=== PATIENT | male | born 1995 | race Caucasian/White ===

== ENCOUNTER 2023-09-04 10:23 | Emergency (ER) | payer OTHER ==
[2023-09-04 12:50] LABS: BASOPHILS PERCENT AUTO 0.3 % (0.1-1.3); EOSINOPHILS ABSOLUTE AUTO 0.06 K/uL (0.00-0.40); EOSINOPHILS PERCENT AUTO 0.9 % (0.0-5.4); HEMATOCRIT 43.5 % (38.4-49.7); HEMOGLOBIN 15.1 g/dL (12.9-16.9); IMMATURE GRAN PERCENT AUTO 0.3 % (0.0-0.7); LYMPHOCYTES ABSOLUTE AUTO 1.71 K/uL (0.8-3.3); LYMPHOCYTES PERCENT AUTO 25.4 % (11.4-47.7); MEAN CORPUSCULAR HEMOGLOBIN 31.4 pg (31.6-35.5); MEAN CORPUSCULAR HGB CONC 34.7 g/dL (31.6-35.5); MEAN CORPUSCULAR VOLUME 90.4 fL (81.4-99.0); MONOCYTES ABSOLUTE AUTO 0.72 K/uL (0.20-0.90); MONOCYTES PERCENT AUTO 10.7 % (3.3-12.6); NEUTROPHILS ABSOLUTE AUTO 4.19 K/uL (1.0-7.6); NEUTROPHILS PERCENT AUTO 62.4 % (40.0-78.1); PLATELET COUNT,PLT 239 K/uL (130-375); RED BLOOD CELL COUNT 4.81 M/uL (4.14-5.76); WHITE BLOOD CELL COUNT,WBC 6.7 K/uL (3.2-11.0)
[2023-09-04] MEDS: Sodium Chloride 0.9% 10 ML Syringe FLUSH PRN (12:53)
[2023-09-04] MEDS: Sodium Chloride 0.9% 1,000 ML IV SCH (12:54)
[2023-09-04 12:56] LABS: BASOPHILS ABSOLUTE AUTO 0.02 K/uL (0.00-0.10); IMMATURE GRAN ABSOLUTE AUTO 0.02 K/uL (0.00-0.23)
[2023-09-04 13:05] LABS: CALCIUM 9.8 mg/dL (8.5-10.1); CREATININE 0.9 mg/dL (0.8-1.3); EST CRCL DRUG DOSING (CG) 126.56 mL/min; POTASSIUM,K 4.2 mmol/L (3.6-5.2)
[2023-09-04 13:06] LABS: ANION GAP 12.2 mmol/L (5.0-14.0)
[2023-09-04] MEDS: Sodium Chloride 0.9% 100 ML IV ONE (13:07)
[2023-09-04] MEDS: Iopamidol 612 MG/ML 100 ML Bottle IV ONE (13:07)
[2023-09-04] MEDS: Sodium Chloride 0.9% 10 ML Syringe FLUSH ONE (13:07)
== END 2023-09-04 15:10 | disposition home or self-care (01) ==
LOC: JP.ED 10:23
DX: S20.229A Contusion of unspecified back wall of thorax, initial encounter (principal); Z91.048 Other nonmedicinal substance allergy status; V86.05XA Driver of 3- or 4- wheeled all-terrain vehicle (ATV) injured in traffic accident, initial encounter
CPT/HCPCS: 36415; 71260; 80048; 85025; 99284; J3490; J7030; Q9967